=== PATIENT | female | born 1960 | race Caucasian/White ===

== ENCOUNTER 2017-09-29 15:16 | Emergency (ER) | payer SELFPAY ==
[~2017-09-29] VITALS: Ht 154.9 cm; Wt 121.9 kg
[2017-09-29 15:23] VITALS: BP 213/93; PULSE 102; RESP 20; TEMP 97.4; O2SAT 95
[2017-09-29 15:32] VITALS: BP 139/73
[2017-09-29] MEDS ORDERED: PRED20 PO (16:25)
[2017-09-29] MEDS ORDERED: LEVA500T33 PO (16:25)
--- NOTE | 2017-09-29 16:25 | PD ---
HPI Chief Complaint: Cold / Flu Symptoms Time Seen by Provider: 15:55 Travel History International Travel<30 days: No Contact w/Intl Traveler<30days: No Traveled to known affect area: No History of Present Illness HPI This is a 56 year old female here with reported productive cough 4 days. No Fever or chills. Reporting yellow/green sputum. Occasional wheezing. Symptom severity is moderate. No aggravating or alleviating factors. PFSH Past Medical History Medical History: Denies Significant Hx Tetanus Vaccination: > 5 Years Influenza Vaccination: No ?: Not Past Surgical History Section: Yes Tonsillectomy: Yes Social History Alcohol Use: No Tobacco Use: No Substance Use: No Allergies-Medications (Allergen,Severity, Reaction): Coded Allergies: No Known Allergies (Verified Allergy, Unknown, 09/29/17) Reported Meds & Prescriptions Reported Meds & Active Scripts Active No Active Prescriptions or Reported Medications Review of Systems Except as stated in HPI: all other systems reviewed are Neg General / Constitutional: No: Fever Eyes: No: Visual changes HENT: No: Headaches Cardiovascular: No: Chest Pain or Discomfort Respiratory: Positive: Cough, Wheezing, No: Shortness of Breath Gastrointestinal: No: Abdominal Pain Genitourinary: No: Dysuria Musculoskeletal: No: Pain Physical Exam Narrative GENERAL: Alert and well-appearing 56-year-old female SKIN: Warm and dry. HEAD: Normocephalic. EYES: No scleral icterus. No injection or drainage. NECK: Supple, trachea midline. No JVD or lymphadenopathy. CARDIOVASCULAR: Regular rate and rhythm without murmurs, gallops, or rubs. RESPIRATORY: Breath sounds equal bilaterally. No accessory muscle use. Rhonchorous cough with mild expiratory wheeze clears with cough GASTROINTESTINAL: Abdomen soft, non-tender, nondistended. MUSCULOSKELETAL: No cyanosis, or edema. BACK: Nontender without obvious deformity. No CVA tenderness. Data Data Last Documented VS Vital Signs Date Time Temp Pulse Resp B/P (MAP) Pulse Ox O2 Delivery O2 Flow Rate FiO2 09/29/17 15:32 139/73 (95) 09/29/17 15:28 Room Air 09/29/17 15:23 97.4 102 20 95 MDM Medical Decision Making Medical Screen Exam Complete: Yes Emergency Medical Condition: Yes Medical Record Reviewed: Yes Differential Diagnosis Bronchitis, pneumonia, influenza Narrative Course This is a 56-year-old female here with reported productive cough and intermittent wheezing 4 days. On exam she is well-appearing she does have a rhonchorous cough with colored sputum production. She reports she was treated 3 weeks ago for the same complaint with azithromycin with only minimal symptom improvement. She'll be treated with Levaquin, steroids, bronchodilator. Diagnosis Primary Impression: Bronchitis Referrals: Primary Care Physician Additional Instructions: Medication as directed. Albuterol inhaler as directed. Follow-up the primary doctor Scripts Prednisone (Prednisone) 20 Mg Tab 40 MG PO DAILY, #10 TAB 0 Refills Take 40 mg (2 tablets) daily for 5 days Prov: Yuliya Crabtree 09/29/17 Levofloxacin (Levaquin) 500 Mg Tablet 500 MG PO DAILY for Infection for 7 Days, #7 TAB 0 Refills Prov: Yuliya Crabtree 09/29/17 Disposition: 01 DISCHARGE HOME Condition: Stable Yuliya Crabtree Sep 29, 2017 16:25
== END 2017-09-29 16:35 | disposition home or self-care (01) ==
LOC: PHEFT 15:16
DX: J40 Bronchitis, not specified as acute or chronic (principal)
CPT/HCPCS: 99283